=== PATIENT | female | born 1950 | race Caucasian/White ===

== ENCOUNTER 2021-10-06 05:15 | Observation (INO) ==
--- NOTE | 2021-10-06 05:55 | Emergency Department Note ---
Impression & Plan Midsternal chest pain Admit to the [facility] ED Provider Note NAME: JALEN RAI AGE: 70 SEX: F ARRIVES VIA: Ambulance INFORMANT: Patient ED PROVIDER(S): Taya Brown DO CHIEF COMPLAINT: Chest pain PLAN: Disposition: Admit to the [facility] Condition: Guarded MEDICAL DECISION MAKING: This is a 70-year-old female patient who presents to the emergency department with substernal chest pain that woke her from sleep. The patient has had exertional chest discomfort over the past week. The patient normally exerts herself by walking 3 miles a day without any difficulty but has noticed this past week that she has had to stop because of chest pain. She has a normal- appearing EKG tonight and a negative troponin. The patient woke from sleep t onight with chest discomfort which brought her here to the emergency department. The patient received sublingual nitroglycerin by EMS which reduced her substernal chest discomfort significantly. [facility] for [facility]. Triage Nursing notes reviewed and agree with them. Vital Signs: reviewed and unremarkable Differential diagnosis: GERD, STEMI, NSTEMI, angina Diagnostics interpreted by me: ECG: Normal sinus rhythm at a rate of [address] segment depression in the inferior leads with no ST segment elevation or ectopy Cardiac Monitoring: Sinus rhythm at 78 Laboratory studies: See below Imaging studies: As per my interpretation Portable chest x-ray: No significant cardiomegaly or pulmonary infiltrates or consolidations. HPI: 70/F arrives for evaluation of substernal chest. Patient describes having episodes of indigestion throughout the week for which she took Tums several evenings. This did not relieve her discomfort. She then describes 2 specific episodes of exertional chest pain. Yesterday she was running with her grandson while they were flying a kite but had to stop secondary to chest pain. Patient also explains that she typically walks approximately 3 miles a day but could not even walk 1 mile yesterday because of the significant chest discomfort that she was having. The patient was awoken from sleep this morning with substernal chest pain and called EMS. The patient was given sublingual nitroglycerin sprays and baby aspirin which decreased the chest discomfort that she was having. ROS: See above HPI for pertinent positives & negatives. A total of 10 systems reviewed and were otherwise negative. PAST MEDICAL HISTORY:Hypertension PAST SURGICAL HISTORY:See Below FAMILY HISTORY: The patient has no significant family history of heart disease as her parents lived into their 80s and 90s. SOCIAL HISTORY:Patient is from [place] and is here visiting her mother. HOME MEDICATIONS:See Below ALLERGIES:See Below VITALS:See Below PHYSICAL EXAMINATION: HEENT: Head - normocephalic and atraumatic Pupils are equal, round, and reactive to light. Extraocular eye muscles are intact, and sclera are anicteric. Nose - moist nasal mucosa without discharge. Mouth - moist buccal mucosa. Oropharynx is nonerythematous and there is no tonsillar exudate or edema noted. Neck: Supple; no JVD, nuchal rigidity, cervical lymphadenopathy, or auscultated bruits. Heart: Regular rate and rhythm. There is a normal S1 and S2 with no murmurs, clicks, or gallops appreciated. Lungs: Clear to auscultation bilaterally with no wheezes, rales, or rhonchi. Abdomen: Soft, completely nontender, nondistended, with good bowel sounds. There are no palpable pulsatile masses or hepatosplenomegaly. There is no guarding, rigidity, or rebound noted. Extremities: No evidence of cyanosis, clubbing, or edema. There are easily palpable peripheral pulses. Skin: warm and dry with good turgor and no rashes. ED COURSE: Times/Reassessments: 525 the patient was evaluated in room A12. A complete history and physical was performed. Laboratory studies were drawn as above. A twelve-lead EKG was obtained. A portable chest x-ray was performed. An order was placed for continuous cardiac monitoring. The patient was in a normal sinus rhythm at a rate of 78. I reviewed the results of the laboratory studies with the patient. I explained to her my concerns with the exertional chest discomfort and the need for cardiology evaluation. She was agreeable to stay here in the hospital. I discussed the case with the [facility] hospitalist and they will evaluate for further management. Taya Brown DO Past Med/Surg History Social History Smoking Status: Never smoker Preferred Language: [place] Feels Safe at Home: Yes Allergies Allergies Allergy/AdvReac Type Severity Reaction Status Date / Time isosorbide [From Imdur] AdvReac ARM PAIN Verified 10/06/21 11:08 Home Meds Home Medications Medication Instructions Recorded Confirmed alendronate 70 mg tablet 70 mg PO .QTUES 10/06/21 10/06/21 amlodipine 2.5 mg tablet 2.5 mg PO HS 10/06/21 10/06/21 aspirin 81 mg tablet,delayed 81 mg PO HS 10/06/21 10/06/21 release chlorthalidone 50 mg tablet 50 mg PO QAM 10/06/21 10/06/21 simvastatin 20 mg tablet 20 mg PO HS 10/06/21 10/06/21 valsartan 320 mg tablet 320 mg PO HS 10/06/21 10/06/21 Previous Rx's Medication Instructions Recorded potassium chloride 10 mEq 10 meq PO DAILY #30 tab 10/06/21 tablet,extended release Results & Data (ED) Vital Signs Vital Signs - 24 hr 10/06/21 07:06 10/06/21 08:00 Pulse Rate [Apical] 66 67 Pulse Rhythm [Apical] Regular Regular Pulse Strength [Apical] Normal Normal Respiratory Rate 16 16 Respiratory Effort / Characteristics Non-Labored Spontaneous Non-Labored Spontaneous Respiratory Depth Normal Normal Respiratory Pattern Regular Regular Blood Pressure [Right Arm] 154/81 H 147/98 H Blood Pressure Mean [Right Arm] 105 114 Blood Pressure Position [Right Arm] Lying Sitting Pulse Oximetry 97 98 Oxygen Delivery Method Room Air Room Air Laboratory Data Result diagrams: 10/06/21 05:54 10/06/21 14:51 Lab Results 10/06/21 10/06/21 10/06/21 Range/Units 05:54 05:54 05:54 WBC 6.12 (4.8-10.8) K/uL RBC 4.91 (4.2-5.4) M/uL Hgb 13.9 (12.0-16.0) g/dL Hct 41.4 (37-47) % MCV 84.3 (80-100) fL MCH 28.3 (25-34) pg MCHC 33.6 (32-36) g/dL RDW Std Deviation 44.3 (36.4-46.3) fL RDW Coeff of Karin 14.3 (11.5-14.5) % Plt Count 271 (130-400) K/uL MPV 9.7 (7.4-10.4) fL Immature Gran % (Auto) 0.2 % Neut % (Auto) 60.6 % Lymph % (Auto) 29.9 % [place] % (Auto) 7.0 % Eos % (Auto) 2.0 % Baso % (Auto) 0.3 % Neut # (Auto) 3.71 (1.4-6.5) K/uL Lymph # (Auto) 1.83 (1.2-3.4) K/uL [place] # (Auto) 0.43 (0.11-0.59) K/uL Eos # (Auto) 0.12 (0-0.5) K/uL Baso # (Auto) 0.02 (0-0.2) K/uL Immature Gran # (Auto) 0.01 (0.00-0.02) K/uL PT (9.0-12.0) Seconds INR (0.9-1.1) APTT (21.0-31.0) Seconds PTT Ratio D-Dimer (0-500) ug/L FEU Sodium 141 (136-145) mmol/L Potassium 2.9 L (3.5-5.1) mmol/L Chloride 103 (98-107) mmol/L Carbon Dioxide 29 (21-32) mmol/L Anion Gap 9 (3-11) BUN 15 (6-23) mg/dl Creatinine 0.67 (0.6-1.2) mg/dl Est Cr Clr Drug Dosing 80.9 ml/min Est GFR ( Amer) 103.2 ml/min Est GFR (Non-Af Amer) 89.1 ml/min BUN/Creatinine Ratio 22.4 H (10-20) Glucose 100 H (70-99(Fasting)) mg/dl Calcium 9.5 (8.5-10.1) mg/dl Magnesium (1.7-2.4) mg/dl Total Bilirubin 0.3 (0.2-1.0) mg/dl AST 17 (13-39) U/L ALT 9 (7-52) U/L Alkaline Phosphatase 68 (34-104) U/L Troponin I High Sens Cancelled 4.9 Total Protein 7.3 (6.0-8.3) gm/dl Albumin 4.3 (3.4-5.0) gm/dl Globulin 3.0 (2.5-4.0) gm/dl Albumin/Globulin Ratio 1.4 (0.9-2) Lipase 19 (11-82) U/L SARS-CoV-2, RNA, NAAT (NEGATIVE) 10/06/21 10/06/21 10/06/21 Range/Units 06:26 08:39 08:39 WBC (4.8-10.8) K/uL RBC (4.2-5.4) M/uL Hgb (12.0-16.0) g/dL Hct (37-47) % MCV (80-100) fL MCH (25-34) pg MCHC (32-36) g/dL RDW Std Deviation (36.4-46.3) fL RDW Coeff of Karin (11.5-14.5) % Plt Count (130-400) K/uL MPV (7.4-10.4) fL Immature Gran % (Auto) % Neut % (Auto) % Lymph % (Auto) % [place] % (Auto) % Eos % (Auto) % Baso % (Auto) % Neut # (Auto) (1.4-6.5) K/uL Lymph # (Auto) (1.2-3.4) K/uL Henry # (Auto) (0.11-0.59) K/uL Eos # (Auto) (0-0.5) K/uL Baso # (Auto) (0-0.2) K/uL Immature Gran # (Auto) (0.00-0.02) K/uL PT 10.4 (9.0-12.0) Seconds INR 1.0 (0.9-1.1) APTT 30.5 (21.0-31.0) Seconds PTT Ratio 1.1 D-Dimer < 190 (0-500) ug/L FEU Sodium (136-145) mmol/L Potassium (3.5-5.1) mmol/L Chloride (98-107) mmol/L Carbon Dioxide (21-32) mmol/L Anion Gap (3-11) BUN (6-23) mg/dl Creatinine (0.6-1.2) mg/dl Est Cr Clr Drug Dosing ml/min Est GFR ( Amer) ml/min Est GFR (Non-Af Amer) ml/min BUN/Creatinine Ratio (10-20) Glucose (70-99(Fasting)) mg/dl Calcium (8.5-10.1) mg/dl Magnesium 2.2 (1.7-2.4) mg/dl Total Bilirubin (0.2-1.0) mg/dl AST (13-39) U/L ALT (7-52) U/L Alkaline Phosphatase (34-104) U/L Troponin I High Sens 5.7 Total Protein (6.0-8.3) gm/dl Albumin (3.4-5.0) gm/dl Globulin (2.5-4.0) gm/dl Albumin/Globulin Ratio (0.9-2) Lipase (11-82) U/L SARS-CoV-2, RNA, NAAT NEGATIVE (NEGATIVE) Administered Medications Discontinued Medications Heparin Sodium/Dextrose (Heparin 54650 Unit/500 Ml D5w) Confirm Administered Dose 25,000 units IV .STK-MED ONE Stop: 10/06/21 08:50 Last Admin: 10/06/21 08:53 Dose: 800 units Documented by: [id number] Cosigned by: [id number] Potassium Chloride (K Buck / Wtr) 10 meq in 100 mls @ 100 mls/hr IV ONE ONE; Protocol Stop: 10/06/21 07:37 Last Infusion: 10/06/21 08:09 Dose: 0 mls/hr Documented by: [id number] Admin: 10/06/21 07:09 Dose: 100 mls/hr Documented by: [id number] Potassium Chloride (K Buck / Wtr) 10 meq in 100 mls @ 100 mls/hr IV Q1H PATRICIA; Protocol Stop: 10/06/21 10:14 Last Infusion: 10/06/21 10:40 Dose: 0 mls/hr Documented by: [id number] Admin: 10/06/21 09:40 Dose: 100 mls/hr Documented by: [id number] Infusion: 10/06/21 09:40 Dose: 0 mls/hr Documented by: [id number] Admin: 10/06/21 08:40 Dose: 100 mls/hr Documented by: [id number] Heparin Sodium/Dextrose (Heparin Sodium/Dextrose) 25,000 units in 500 mls @ 16 mls/hr IV .Q24H PATRICIA; Protocol Stop: 11/05/21 08:14 Last Titration: 10/06/21 12:08 Dose: 0 units/hr, 0 mls/hr Documented by: [id number] Cosigned by: [id number] Admin: 10/06/21 08:53 Dose: 800 units/hr, 16 mls/hr Documented by: [id number] Cosigned by: [id number] Potassium Chloride (Potassium Chloride Crtab 20 Meq Tabcr) 40 meq PO NOW STA Stop: 10/06/21 07:46 Last Admin: 10/06/21 08:40 Dose: 40 meq Documented by: [id number] Discharge Plan Visit Data Chief Complaint: Chest Pain ED Provider: Taya Brown Discharge Problem: Midsternal chest pain Patient Disposition: Admitted As Inpatient Discharge Instructions Interventions: ED Discharge Assessment Last Done: 10/06/21 09:00
[2021-10-06 06:10] LABS: Basophils # (auto) 0.02 K/uL (0-0.2); Basophils % (auto) 0.3 %; Eosinophils # (auto) 0.12 K/uL (0-0.5); Hematocrit (blood only) 41.4 % (37-47); Hemoglobin 13.9 g/dL (12.0-16.0); Immature Granulocytes # (auto) 0.01 K/uL (0.00-0.02); Immature Granulocytes % (auto) 0.2 %; Lymphocytes # (auto) 1.83 K/uL (1.2-3.4); Lymphocytes % (auto) 29.9 %; Mean Corpuscular Hemoglobin 28.3 pg (25-34); Mean Corpuscular Hgb Conc 33.6 g/dL (32-36); Mean Corpuscular Volume 84.3 fL (80-100); Mean Platelet Volume 9.7 fL (7.4-10.4); Monocytes # (auto) 0.43 K/uL (0.11-0.59); Neutrophils # (auto) 3.71 K/uL (1.4-6.5); Neutrophils % (auto) 60.6 %; Platelet Count 271 K/uL (130-400); RDW Coefficient of Variation 14.3 % (11.5-14.5); RDW Standard Deviation 44.3 fL (36.4-46.3); Red Blood Count 4.91 M/uL (4.2-5.4); White Blood Count 6.12 K/uL (4.8-10.8)
[2021-10-06 06:35] LABS: Albumin Globulin Ratio 1.4 (0.9-2); Albumin Level 4.3 gm/dl (3.4-5.0); BUN Creatinine Ratio 22.4 (10-20); Bilirubin,Total 0.3 mg/dl (0.2-1.0); Calcium 9.5 mg/dl (8.5-10.1); Creatinine Clr Calc Pharmacy 80.9 ml/min; Est GFR (African American) 103.2 ml/min; Est GFR (Non-African American) 89.1 ml/min; Potassium 2.9 mmol/L (3.5-5.1); Total Protein 7.3 gm/dl (6.0-8.3)
[2021-10-06 06:37] LABS: Troponin I High Sensitivity 4.9 pg/ml (0-14)
[2021-10-06] MEDS ORDERED: POTASSIUM CHLORIDE / WTR 10 MEQ/100 ML PLCT IV ONE (06:38)
--- NOTE | 2021-10-06 06:53 | XRay Report ---
XR chest 1V portable CLINICAL HISTORY: Atypical chest pain. COMPARISON STUDY: No previous studies for comparison. FINDINGS: Lung volumes are normal. Apparent retrocardiac opacity is likely artifactual. There is no p neumothorax or pleural effusion. Mild cardiomegaly is noted. Mediastinal contours are normal. There i s no evidence for pulmonary edema. Slight asymmetric prominence of the right hilum. IMPRESSION: 1. Mild cardiomegaly. No evidence for pulmonary edema. 2. Apparent retrocardiac opacity which is likely artifactual. Follow-up PA and lateral chest radiogra phs are recommended to exclude airspace opacity. ACT 112: Negative or not required by law. Electronically signed by: Dima Tinajero M.D. 10/06/2021 6:52 AM
[2021-10-06] MEDS ORDERED: POTASSIUM CHLORIDE CRTAB 20 MEQ TABCR PO STA (07:45)
[2021-10-06] MEDS ORDERED: Heparin IV Adult Wt-Based Low-Dose *NO* Bolus Protocol IV SCH (08:15)
[2021-10-06] MEDS ORDERED: Patient's ALLERGY Info needs ENTERED SCH (08:15)
[2021-10-06] MEDS ORDERED: HEPARIN SODIUM/DEXTROSE 25,000 UNITS/500 ML BAG IV SCH (08:15)
[2021-10-06] MEDS: POTASSIUM CHLORIDE / WTR 10 MEQ/100 ML PLCT IV SCH ×2 (08:40→09:40)
--- NOTE | 2021-10-06 08:46 | History & Physical Report ---
Date of Service October 06, 2021 Assessment & Plan (1) Chest pain: (2) Hypokalemia: (3) Essential hypertension: (4) Osteoporosis: Plan: Chest pain, r/o UA- Tropx1 negative. EKG with no acute ischemic changes. No personal or family h/o cardiac disease in immediate family members. Will start on heparin drip given concern for UA. Trend trop, tele. Consulted cardio for further work up. Will keep npo pending cardiac eval. Will check D dimer- if positive will get CTA chest Hypokalemia- likely from her diuretic. Repleted. Recheck later Essential HTN- on valsartan 320 hs, amlodipine 2.5 hs, chlorthalidone 50 mg qam. Hold diuretic for now Osteoporosis- on fosamax for 3 years now. Dispo- PCU on tele Full code History of Present Illness Chief Complaint: Chest pain Primary Care Provider: NO PCP 70 year old female with h/o HTN, osteoporosis who presented to the ED with multiple chest pain episodes. She is from [place] and came here last week to visit family. She is normally very active and able to walk 3 miles a day without issues, as well as going up and down the stairs. She has had indigestion episodes over the past week which was not completely relieved with tums. Yesterday she was running with her grandson while flying a kite when she had substernal chest pain and had to stop and the pain went away. Last night, when she was walking, she again had recurrence of the same chest pain and had to stop. Around 3 am this morning, she woke up with the same chest pain. She called EMS and came to the ED. She was given sublingual nitroglycerin sprays and aspirin by EMS which relieved the pain. She was pain free in the ED and during my encounter. Denies any other symptoms like shortness of breath, diaphoresis, nausea. No radiation of pain. She states she had chest pain with left UE numbness back in 05/2020 in [place] and was evaluated in ED- her cardiac work up including cardiac enzymes, EKG and echo was said to be unremarkable. She never had a stress test done. She does not have any personal history of cardiac disease. No heart disease in immediate family members except for sister with pacemaker and her grandfather with some heart disease. Does not smoke or drink alcohol. She never had a blood clot before. Her flight here from [place] was 4 hours. She is however concerned if she has a blood clot because of her prior COVID shots and boosters, however last shot was in February. Allergies Allergy/AdvReac Type Severity Reaction Status Date / Time isosorbide [From Imdur] AdvReac ARM PAIN Verified 10/06/21 11:08 Home Medications Medication Instructions Recorded Confirmed Type alendronate 70 mg tablet 70 mg PO .QTUES 10/06/21 10/06/21 History amlodipine 2.5 mg tablet 2.5 mg PO HS 10/06/21 10/06/21 History aspirin 81 mg tablet,delayed 81 mg PO HS 10/06/21 10/06/21 History release chlorthalidone 50 mg tablet 50 mg PO QAM 10/06/21 10/06/21 History potassium chloride 10 mEq 10 meq PO DAILY #30 tab 10/06/21 Rx tablet,extended release simvastatin 20 mg tablet 20 mg PO HS 10/06/21 10/06/21 History valsartan 320 mg tablet 320 mg PO HS 10/06/21 10/06/21 History Past Med/Surg History Social History Smoking Status: Never smoker Feels Safe at Home: Yes Review of Systems Review of Systems: All systems reviewed & are unremarkable except as noted in Subjective Physical Exam Physical Exam: General: Sitting comfortably in bed, not in distress, on room air HEENT: EOMI, TANNER, MMM Chest: Clear breath sounds bilaterally, no wheezes or crackles CVS: Regular rate and rhythm, normal heart sounds, no murmur Abdomen: Soft, non tender, not distended, normal bowel sounds Neuro: Awake, alert, oriented, conversing well, non focal Extremities: No cyanosis, clubbing or edema Results & Data Results & Data ([facility]) Vital Signs (Past 12 Hours) Vital Signs Temp Pulse Pulse Resp BP BP Pulse Ox 10/06/21 07:06 66 16 154/81 H 97 10/06/21 05:38 99 10/06/21 05:06 37.1 C 78 18 146/79 H 96 Laboratory Results Short CBC 10/06/21 Range/Units 05:54 WBC 6.12 (4.8-10.8) K/uL Hgb 13.9 (12.0-16.0) g/dL Hct 41.4 (37-47) % Plt Count 271 (130-400) K/uL BMP 10/06/21 05:54 Sodium 141 Potassium 2.9 L Chloride 103 Carbon Dioxide 29 BUN 15 Creatinine 0.67 Glucose 100 H Calcium 9.5 Liver Function 10/06/21 Range/Units 05:54 Total Bilirubin 0.3 (0.2-1.0) mg/dl AST 17 (13-39) U/L ALT 9 (7-52) U/L Alkaline Phosphatase 68 (34-104) U/L Albumin 4.3 (3.4-5.0) gm/dl Diagnostic Findings Chest X-Ray 10/06/21 05:38 XR chest 1V portable CLINICAL HISTORY: Atypical chest pain. COMPARISON STUDY: No previous studies for comparison. FINDINGS: Lung volumes are normal. Apparent retrocardiac opacity is likely artifactual. There is no pneumothorax or pleural effusion. Mild cardiomegaly is noted. Mediastinal contours are normal. There is no evidence for pulmonary edema. Slight asymmetric prominence of the right hilum. IMPRESSION: 1. Mild cardiomegaly. No evidence for pulmonary edema. 2. Apparent retrocardiac opacity which is likely artifactual. Follow-up PA and lateral chest radiographs are recommended to exclude airspace opacity. ACT 112: Negative or not required by law. Electronically signed by: Dima Tinajero M.D. 10/06/2021 6:52 AM
[2021-10-06] MEDS ORDERED: HEPARIN 25000 UNIT/500 ML D5W IV ONE (08:49)
[2021-10-06 09:05] LABS: D Dimer < 190 ug/L FEU (0-500)
[2021-10-06 09:09] LABS: Magnesium 2.2 mg/dl (1.7-2.4)
[2021-10-06 09:17] LABS: Troponin I High Sensitivity 5.7 pg/ml (0-14)
[2021-10-06 09:29] LABS: Partial Thromboplastin Ratio 1.1; Partial Thromboplastin Time 30.5 Seconds (21.0-31.0); Prothrombin Time 10.4 Seconds (9.0-12.0)
--- NOTE | 2021-10-06 12:12 | Cardiology Consultation ---
Date of Consultation October 06, 2021 Assessment & Plan (1) Chest pain: (2) Essential hypertension: The patient's high-sensitivity troponins x2 are normal. Her EKG is essentially normal. She has minimal risk factors for heart disease. I believe the heparin can be discontinued and she will be scheduled for exercise stress echocardiogram today. If this study is low probability or negative then I believe she can be discharged and follow-up with her physicians in [place]. History of Present Illness Attending Physician: Misha Rincon MD History of Present Illness This is a 70-year-old very active female who is from [place] and visiting family here in [place]. She has been having some atypical chest pain for the past 24 to 48 hours. It is atypical in that it does not necessarily occur with activity. It is not associated to shortness of breath. She awoke this morning with it and decided to come to the emergency department. She has no prior history of heart disease. She has minimal risk factors. She does not smoke. She is a nondiabetic with a history of mild essential hypertension which is under treatment. No hypercholesterolemia. No strong family history. Allergies Allergy/AdvReac Type Severity Reaction Status Date / Time isosorbide [From Imdur] AdvReac ARM PAIN Verified 10/06/21 11:08 Home Medications Medication Instructions Recorded Confirmed Type alendronate 70 mg tablet 70 mg PO .QTUES 10/06/21 10/06/21 History amlodipine 2.5 mg tablet 2.5 mg PO HS 10/06/21 10/06/21 History aspirin 81 mg tablet,delayed 81 mg PO HS 10/06/21 10/06/21 History release chlorthalidone 50 mg tablet 50 mg PO QAM 10/06/21 10/06/21 History simvastatin 20 mg tablet 20 mg PO HS 10/06/21 10/06/21 History valsartan 320 mg tablet 320 mg PO HS 10/06/21 10/06/21 History Patient History Social History Smoking Status: Never smoker Feels Safe at Home: Yes Review of Systems Review of Systems: Review of Systems: See HPI for pertinent positives. All other 10 point review of systems are negative. Physical Exam Physical Exam: General: no acute distress and stated age Head: normocephalic, no masses, lesions, tenderness or abnormalities Eyes: conjunctiva are pink and non-injected, sclera clear Neck: supple, no adenopathy, no bruits, normal jugular venous pulse, no hepatojugular reflux Chest: normal shape and normal respiratory effort Lungs: clear to auscultation and percussion Cardiac Exam: - regular rate & rhythm, no murmurs gallops or rubs - normal S1, normal S2 Pulses: 2(+) throughout Abdomen: abdomen soft, non-tender, no abnormal masses and no hepatosplenomegaly Musculoskeletal: no gait disturbance, no joint inflammation, no deforming arthritis Extremities: no edema and no cyanosis Neuro: grossly normal exam Results & Data ([facility]) Vital Signs (Past 12 Hours) Vital Signs Temp Pulse Pulse Resp BP BP Pulse Ox 10/06/21 10:06 69 16 151/91 H 97 10/06/21 08:00 67 16 147/98 H 98 10/06/21 07:06 66 16 154/81 H 97 10/06/21 05:38 99 10/06/21 05:06 37.1 C 78 18 146/79 H 96 Laboratory Results Laboratory Results - last 24 hr 10/06/21 10/06/21 10/06/21 05:54 05:54 05:54 WBC 6.12 RBC 4.91 Hgb 13.9 Hct 41.4 MCV 84.3 MCH 28.3 MCHC 33.6 RDW Std Deviation 44.3 RDW Coeff of Karin 14.3 Plt Count 271 MPV 9.7 Immature Gran % (Auto) 0.2 Neut % (Auto) 60.6 Lymph % (Auto) 29.9 [place] % (Auto) 7.0 Eos % (Auto) 2.0 Baso % (Auto) 0.3 Neut # (Auto) 3.71 Lymph # (Auto) 1.83 [place] # (Auto) 0.43 Eos # (Auto) 0.12 Baso # (Auto) 0.02 Immature Gran # (Auto) 0.01 PT INR APTT PTT Ratio D-Dimer Sodium 141 Potassium 2.9 L Chloride 103 Carbon Dioxide 29 Anion Gap 9 BUN 15 Creatinine 0.67 Est Cr Clr Drug Dosing 80.9 Est GFR ( Amer) 103.2 Est GFR (Non-Af Amer) 89.1 BUN/Creatinine Ratio 22.4 H Glucose 100 H Calcium 9.5 Magnesium Total Bilirubin 0.3 AST 17 ALT 9 Alkaline Phosphatase 68 Troponin I High Sens Cancelled 4.9 Total Protein 7.3 Albumin 4.3 Globulin 3.0 Albumin/Globulin Ratio 1.4 Lipase 19 SARS-CoV-2, RNA, NAAT 10/06/21 10/06/21 10/06/21 06:26 08:39 08:39 WBC RBC Hgb Hct MCV MCH MCHC RDW Std Deviation RDW Coeff of Karin Plt Count MPV Immature Gran % (Auto) Neut % (Auto) Lymph % (Auto) [place] % (Auto) Eos % (Auto) Baso % (Auto) Neut # (Auto) Lymph # (Auto) [place] # (Auto) Eos # (Auto) Baso # (Auto) Immature Gran # (Auto) PT 10.4 INR 1.0 APTT 30.5 PTT Ratio 1.1 D-Dimer < 190 Sodium Potassium Chloride Carbon Dioxide Anion Gap BUN Creatinine Est Cr Clr Drug Dosing Est GFR ( Amer) Est GFR (Non-Af Amer) BUN/Creatinine Ratio Glucose Calcium Magnesium 2.2 Total Bilirubin AST ALT Alkaline Phosphatase Troponin I High Sens 5.7 Total Protein Albumin Globulin Albumin/Globulin Ratio Lipase SARS-CoV-2, RNA, NAAT NEGATIVE
[2021-10-06 15:24] LABS: Partial Thromboplastin Ratio 1.1; Partial Thromboplastin Time 30.8 Seconds (21.0-31.0)
[2021-10-06 15:31] LABS: Calcium 9.4 mg/dl (8.5-10.1); Creatinine Clr Calc Pharmacy 93.5 ml/min; Est GFR (African American) 108.2 ml/min; Est GFR (Non-African American) 93.4 ml/min
--- NOTE | 2021-10-06 16:16 | Communication Note ---
By CMS guidelines, a determination that the admission or continued stay is not medically necessary has been made by a member of the UR committee and a physician for this hospital stay, therefore a Code 44 will be completed and the Inpatient admission will be changed to outpatient. Misha Rincon MD
--- NOTE | 2021-10-06 16:23 | Discharge Summary ---
Date of Service October 06, 2021 Admission HPI Per Admitting Provider 70 year old female with h/o HTN, osteoporosis who presented to the ED with multiple chest pain episodes. She is from [place] and came here last week to visit family. She is normally very active and able to walk 3 miles a day without issues, as well as going up and down the stairs. She has had indigestion episodes over the past week which was not completely relieved with tums. Yesterday she was running with her grandson while flying a kite when she had substernal chest pain and had to stop and the pain went away. Last night, when she was walking, she again had recurrence of the same chest pain and had to stop. Around 3 am this morning, she woke up with the same chest pain. She called EMS and came to the ED. She was given sublingual nitroglycerin sprays and aspirin by EMS which relieved the pain. She was pain free in the ED and during my encounter. Denies any other symptoms like shortness of breath, diaphoresis, nausea. No radiation of pain. She states she had chest pain with left UE numbness back in 05/2020 in [place] and was evaluated in ED- her cardiac work up including cardiac enzymes, EKG and echo was said to be unremarkable. She never had a stress test done. She does not have any personal history of cardiac disease. No heart disease in immediate family members except for sister with pacemaker and her grandfather with some heart disease. Does not smoke or drink alcohol. She never had a blood clot before. Her flight here from [place] was 4 hours. She is however concerned if she has a blood clot because of her prior COVID shots and boosters, however last shot was in February. Admission Exam Per Admitting Provider General: Sitting comfortably in bed, not in distress, on room air HEENT: EOMI, TANNER, MMM Chest: Clear breath sounds bilaterally, no wheezes or crackles CVS: Regular rate and rhythm, normal heart sounds, no murmur Abdomen: Soft, non tender, not distended, normal bowel sounds Neuro: Awake, alert, oriented, conversing well, non focal Extremities: No cyanosis, clubbing or edema Principal Diagnosis chest pain Discharge Exam General: Sitting comfortably in bed, not in distress, on room air HEENT: EOMI, TANNER, MMM Chest: Clear breath sounds bilaterally, no wheezes or crackles CVS: Regular rate and rhythm, normal heart sounds, no murmur Abdomen: Soft, non tender, not distended, normal bowel sounds Neuro: Awake, alert, oriented, conversing well, non focal Extremities: No cyanosis, clubbing or edema Discharge Data Allergies Allergy/AdvReac Type Severity Reaction Status Date / Time isosorbide [From Imdur] AdvReac ARM PAIN Verified 10/06/21 11:08 Consultations 10/06/21 07:31 ED Decision to Admit Stat 10/06/21 07:46 Consult Cardiology Routine Hospital Course (1) Chest pain: (2) Hypokalemia: (3) Essential hypertension: (4) Osteoporosis: Chest pain- Unclear etiology. Tropx3 neg, EKG negative for ischemia, stress test negative, D dimer negative. Seen by cardio and cleared for discharge. D dimer negative, unlikely to be PE, no need for CT chest. Saturating well in room air, vitals stable, no hypoxia, no respiratory issues. Hypokalemia- likely from her diuretic. Repleted. Being discharged on po supplementation as well as recommended repeat BMP in few days. Script provided. Essential HTN- on valsartan 320 hs, amlodipine 2.5 hs, chlorthalidone 50 mg qam. Osteoporosis- on fosamax Evaluated prior to discharge. States she feels good. She states she actually felt better during the stress test- no chest pain, discomfort or shortness of breath. Cleared by cardio for discharge. Updated patient and at bedside. Recommended when to return to ED. Total Time Total Time Spent Total Time Spent (In Minutes): 40 Discharge Plan Discharge Items Patient Disposition: Home - Self-Care Reason For Visit: CHEST PAIN Discharge Diagnosis: Chest pain Activity: Resume your previous activity Non-emergency contact: Primary Care Provider Call non-emergency contact if: you have any medication questions, your symptoms worsen, your pain is concerning for you and you have a fever Follow-up/Referrals: PCP,NO [Primary Care Provider] - Diet: Heart Healthy and Low Sodium (2gm) Diet Comment: High potassium diet Addtl Attending Provider Instructions: We are not entirely sure about the cause of your chest pain but it is less likely to be the heart as the stress test was negative. Also less likely to be the blood clots as your D dimer was negative Your potassium is low likely from the chlorthalidone. Recommend high potassium diet and start potassium supplementation daily Repeat blood work (BMP) in the next few days and follow up with your family doctor Pending Studies at Discharge: No Stand-Alone Forms: My [facility], Smoking Cessation Medications and DC Order Prescriptions: New potassium chloride 10 mEq tablet extended release 10 meq PO DAILY Qty: 30 RF: 0 Continued alendronate 70 mg tablet 70 mg PO .QTUES RF: 0 amlodipine 2.5 mg tablet 2.5 mg PO HS RF: 0 aspirin [Aspir-Low] 81 mg Tablet,Delayed Release (Dr/Ec) 81 mg PO HS RF: 0 simvastatin 20 mg tablet 20 mg PO HS RF: 0 valsartan 320 mg tablet 320 mg PO HS RF: 0 No Action chlorthalidone 50 mg tablet 50 mg PO QAM RF: 0 Discharge Orders: Discharge Order (Routine); Ordered 10/06/21 Ordered By: Misha Rincon Admission Data Admit Date/Time: 10/06/21 08:49 Attending Provider: Misha Rincon Admit Provider: Misha Rincon Primary Care Provider: PCP,NO Other Providers: Taqueria Parry ; Earnest Ba ; Chidi Keene ; Naresh Choudhury ; Isma Mohamud ; RoasJohan hess ; Tomy Rodriguez ; Genny Anne ; Priya Crowder ; Lin Roman ; Loki Martinez
--- NOTE | 2021-10-07 06:09 | Electrocardiogram Report ---
Test Reason : Blood Pressure : / mmHG Vent. Rate : 076 BPM Atrial Rate : 076 BPM P-R Int : 184 ms QRS Dur : 082 ms QT Int : 408 ms P-R-T Axes : 031 015 037 degrees QTc Int : 459 ms Normal sinus rhythm Nonspecific ST abnormality Abnormal ECG No previous ECGs available Confirmed by Lior Aggarwal ([id number]) on 10/07/2021 6:08:45 AM Referred By: REFERRED SELF Confirmed By:Lior Aggarwal
--- NOTE | 2021-10-07 07:41 | Communication Note ---
Date of Service: October 06, 2021 Code 44 attestation: 70-year-old male history of hypertension osteoporosis was admitted with chest pain and subsequently she was ruled out for any ACS and was evaluated by proposal rep. She is a scheduled with an outpatient stress test. Her discharge, EKG and imaging studies reviewed. By CMS guidelines, a determination that the admission or continued stay is not medically necessary has been made by a member of the UR committee and a physician for this hospital stay, therefore a Code 44 will be completed and the Inpatient admission will be changed to outpatient. Dr. Mariano Hernandes Member UR Committee
== END 2021-10-06 16:38 | disposition home or self-care (01) ==
LOC: ED 05:15 → EDINP 08:49 → INTOOBSV 08:49 → EDINP 09:00